=== PATIENT | male | born 1935 ===

== ENCOUNTER → 2024-06-18 12:02 | Outpatient (REF) | payer OTHER, SELFPAY ==
--- NOTE | 2024-06-11 11:58 | WATCHMAN ---
Watchman
Wathcman Procedure
Referred by:: Consuelo/
Date of Referral:: 05/31/24
[id number] Score
Age in Years (65=0, 65-74=1, >/=75=2): > or = 75
Sex (Female=+1): Male
Congestive Heart Failure History (Yes=+1): No
Hypertension History (Yes=+1): Yes
Stroke/TIA/Thromboembolism History (Yes=+2): No
Vascular Disease History (Yes=+1): No
Diabetes Mellitus (Yes=+1): Yes
Score: 4
Anticoagulation Recommendations: Recommend anticoagulation (as validated in nonvalvular fib)
HASBLED Score
Hypertenstion (uncontrolled >160mmHG systolic): No
Renal disease (dialysis, transplant, Cr >2.26mg/dL or >200umol/L): No
Liver disease (cirrhosis or bilirubin >2x normal w/ AST/ALT/AP >3x normal: Yes
Stroke history: No
Prior major bleeding or predisposition to bleeding: Yes
Labile INR(unsable/high INRs,time in therapeutic range <60%): No
Age >65: Yes
Medication usage predisposing to bleeding(ASA, NSAIDS): No
Alcohol use (>/= 8 drinks/week): No
Score: 3
Risk: Alternatives to anticoagulation should be considered: Patient is at high risk for major bleeding
Electrocardiogram
Interpretation: abnormal
Heart Rate: 61
Rhythm: a-fib
QRS Pattern: right bundle branch block
Physician Visits
Manager Event:: Consuelo
Date of Visit:: 05/31/24
Primary Last Greaser:: Zay Polanco
Date of Visit:: 03/13/24
PCP:: Diane Villalta
Oral Anticoagulation
Post procedure anticoagulation plan:: Post TOMASA 3 months after. Will remain on Eliquis 2.5mg bid through post procedure TOMASA.
Plan
Plan:: 05/31/2024: Consult for watchman after seen by Dr. Cordero.
06/15/2024: Authorization for CT watchman received from [facility]. Called and scheduled CT scan for 06/18/2024 at noon. Instructions reviewed. Allowed for and answered questions. Confirmed patient's granddaughter has contact information if any
additional questions.
== END ==
LOC: RAD 12:02
PROVIDERS: ATTENDING PHYSICIAN Internal Medicine Cardiovascular Disease; FAMILY PHYSICIAN Nurse Practitioner Adult Health
DX: I48.20 Chronic atrial fibrillation, unspecified (principal)
CPT/HCPCS: 75572; Q9967